=== PATIENT | female | born 1985 | race Caucasian/White ===

== ENCOUNTER 2018-08-04 01:04 | Inpatient (IN) | payer OTHER ==
[~2018-08-04] VITALS: Ht 165.1 cm; Wt 0.9 kg
[2018-08-04] MEDS ORDERED: PRENATAL TABLE1 EACH PO (01:34)
[2018-08-07] MEDS ORDERED: PERCOCET 5-3251 EACH PO (08:26)
== END 2018-08-07 13:25 | DRG 788 ==
LOC: OB/GYN 01:04 → LDR 01:04 → O/R 09:45 → OB/GYN 10:24
PROVIDERS: Specialist
PROC: 4A1HXCZ Monitoring of Products of Conception, Cardiac Rate, External Approach (ICD-10-PCS; 2018-08-04)
PROC: 10D00Z1 Extraction of Products of Conception, Low, Open Approach (ICD-10-PCS; principal; 2018-08-04 07:00)
DX: O42.012 Preterm premature rupture of membranes, onset of labor within 24 hours of rupture, second trimester (principal); O64.8XX0 Obstructed labor due to other malposition and malpresentation, not applicable or unspecified; Z3A.24 24 weeks gestation of pregnancy; Z37.0 Single live birth